=== PATIENT | female | born 1975 | race Caucasian/White ===

== ENCOUNTER 2016-02-20 05:58 | Emergency (ER) | payer OTHER ==
[~2016-02-20] VITALS: Ht 167.6 cm; Wt 63.6 kg
[~2016-02-20 05:58] MED LIST: AMT25T PO; ASCO500C6 PO; BENZ-12 PO; BUSP10TA2 PO; CALC0.257 PO; FERR-83 PO; FOLI1TAB18 PO; LEVO125T6 PO; LORA0.5T PO; MAGN400T23 PO; METH20TA33 PO; MIDO10TA PO; MULT-1018 PO; OXYC5TAB72 PO; PANT40TA3 PO; PARO40TA3 PO; POTA10TA12 PO; PYR50 PO; RISP0.5T14 PO; TRAM50TA2 PO; WARF5TAB PO
[2016-02-20 06:04] VITALS: BP 101/69; PULSE 107; RESP 16; O2SAT 94
--- NOTE | 2016-02-20 06:10 | ED.REPORT ---
HPI-Dyspnea / Wheezing Date of Service Feb 20, 2016 ED Provider: Dr. Mead Pt is a 40 y/o female anticoagulated on Coumadin w/ a complex medical hx significant for PE, asthma, recurrent pneumonia, presenting to the ED c/o pleuritic chest pain onset 2 weeks ago. She decided to come in today because she has had a fever for the past 2 days. She c/o associated dark productive cough, generalized weakness, dyspnea on exertion, SOB. She has been using an Albuterol inhaler (without spacer) without relief. She denies N/V/D. Nursing Notes Stated Complaint: TROUBLE BREATHING/COUGH Chief Complaint: Respiratory Complaints Nursing Notes Reviewed: Yes Allergies: Coded Allergies: No Known Allergies (Unverified Allergy, Unknown, 12/12/15) Scheduled Amitriptyline (Amitriptyline) 25 Mg Tab 25-50 MG PO HS Ascorbic Acid (Vitamin C) 500 Mg Capsule.er 500 MG PO DAILY Azithromycin (Zithromax) 250 Mg Tablet 250 MG PO DAILY first dose was in the ER Buspirone (Buspirone) 10 Mg Tablet 10 MG PO TID Calcitriol (Rocaltrol) 0.25 Mcg Capsule 0.25 MCG PO MWF Clotrimazole 2% (Gyne-Lotrimin 3 2%) 21 Gm Cream.appl 21 GM VAGINAL BID to hand for ringworm, use until rash gone Ferrous Sulfate (Ferrous Sulfate) 325 Mg Tablet 325 MG PO HS Folic Acid (Folic Acid) 1 Mg Tablet 1 MG PO DAILY Levothyroxine (Levothyroxine) 125 Mcg Tablet 125 MCG PO DAILY Magnesium Oxide (Mag-Oxide) 400 Mg Tablet 400 MG PO TID Methylphenidate (Methylphenidate) 20 Mg Tablet 20 MG PO TID 8am, NOON, 4pm Midodrine (Midodrine) 10 Mg Tablet 10 MG PO TID Multivitamin (Multi Vitamin Daily) 1 Each Tablet 1 EACH PO DAILY Pantoprazole DR (Pantoprazole DR) 40 Mg Tablet.dr 40 MG PO DAILY Paroxetine (Paroxetine) 40 Mg Tablet 40 MG PO DAILY Potassium Chloride ER (Potassium Chloride ER) 10 Meq Tablet 10 MEQ PO DAILY Prednisone (PredniSONE) 20 Mg Tablet 20 MG PO DAILY 40 mg (2 pills) 02/20, 02/21 20mg (1 pill) 02/22,02/23 10mg (1/2 pill) 02/24, Pyridoxine (Vitamin B-6) 50 Mg Tablet 200 MG PO DAILY Risperidone (Risperdal) 0.5 Mg Tablet 0.5 MG PO DAILY Warfarin Sodium (Coumadin) 5 Mg Tablet 5 MG PO Lauren,Mo,We,Fri,Sa Warfarin Sodium (Coumadin) 5 Mg Tablet 7.5 MG PO ,Lillie Scheduled PRN Benzonatate (Tessalon Perle) 100 Mg Capsule 200 MG PO TID PRN PRN For Cough Lorazepam (Lorazepam) 0.5 Mg Tablet 0.5 MG PO TID PRN PRN For Anxiety Tramadol (Tramadol) 50 Mg Tablet 50 MG PO TID PRN PRN For Pain oxyCODONE (oxyCODONE) 5 Mg Tablet 5 MG PO Q4H PRN PRN For Pain General Time Seen by MD: 06:13 Chief Complaint Cough, Shortness of breath Hx Obtained From: Patient Arrived By: Walk-in Sudden in Onset?: No Onset Occurred: More than a week ago... (2 weeks) Symptom Duration: Since onset Location: : Chest left: Chest right Quality: Pleuritic Severity: Current: Moderate Severity: Maximum: Moderate Past Medical History Past Medical History Notes: Admitted 04/14/2015 for syncope, hypotension Echo 04/2015 EF 60-65%, normal Admit 12/2015 for pneumonia Past Medical History 1. Patient admitted to [facility] 10/09/2014 t to the CCU for severe, refractory hypotension in the setting of chronic malnutrition, and 2 months of progressive weakness falls and edema/anasarca. 2. Pulmonary Embolus (exact etiology not determined beyond sedentary hospitalization) 10/13/14 at [facility], further complicated by development of ARDS necessitating intubation mechanical ventilation. As a result of high airway pressures, the patient developed bilateral pneumothoraces and requiredbilateral chest tubes. Patient required a tracheostomy for vent weaning. Exact etiology of ARDS was unknown. Patient was then placed at [facility], and discharged from there to a SNF on 12/22/14. 3. Patient remains on chronic anticoagulation 4. Herniated disk 5. Hx of SBO - admit to [facility] 09/2015 for SBO, managed conservatively at that time 6. Hx of colon torsion 7. Narcolepsy 8. Chronic migraines 9. ADD 10. Cardiomyopathy echo at [facility] showed a PFO and a right left intracardiac shunt, thought to be Takotsubo cardiomyopathy - follow up echo revealed resolution (EF 65-70% in 09/2015) 11. Bipolar disorder 12. Hypothyroidism 13. GERD 14. Asthma Reports: Depression Past Surgical History Gastric bypass (multiple revisions) Vertical banding Gastroplasty Adhesion lysis Chest tube R and L following barotrauma during. 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 12/12/2015 Ambulatory Status Independent Review of Systems Constitutional: Reports: Chills, Fever, Weakness - generalized Respiratory: Reports: Dyspnea on exertion, Pleuritic pain, Prod cough, brown, Prod cough, green, Prod cough, yellow, Shortness of breath Complete sys rev & neg: except as marked. GI: Denies: Diarrhea, Nausea, Vomiting Physical Exam Initial Vital Signs Vital Signs (First) Date Time Temp Pulse Resp B/P Pulse Ox O2 Delivery O2 Flow Rate FiO2 02/20/16 06:04 37.1 107 16 101/69 94 Room Air Initial VS: Reviewed, Vital signs abnormal Head / Eyes: Atraumatic, Normocephalic, PERRL ENT: Mucous membranes moist, Conjunctiva normal, No scleral icterus Abdomen / GI: Soft Extremities: Vascular intact, Neuro intact, No swelling, No tenderness Skin: Warm, Dry, No cyanosis Neurologic: Alert, Oriented, Nonfocal Psychiatric: Mood/affect normal, Behavior normal, Normal thought content General/Constitutional: Awake, Alert, No acute distress, Cooperative, Not toxic appearing Neck: Atraumatic, Supple, Full range of motion Respiratory / Chest: Atraumatic, No respiratory distress, No rales, No retractions, No chest tenderness Mild wheezing throughout Good air movement Rhonchi over the right upper lobe and right axilla Cardiovascular: Heart rate NL, Regular rhythm, Cap refill not delayed, Peripheral circulation NL Heart Sounds / Murmur: Positive: Systolic murmur present.. (II/) Skin: Atraumatic, Warm, Dry, Intact Rash / Lesion Notes: Left posterior hand: 1 cm flesh colored macule with central clearing Interpretation & Diagnostics X-Ray Chest Interpretation Chest Xray Interpretation: Developing right upper lobe pneumonia View: AP & lat Re-Eval/Medical Decision Re-Evaluation/Progress : Time of Eval: 07:08 Re-Evaluation/Progress Note: Pt rechecked. Informed pt of plan for treatment. Pt understands and agrees with plan for treatment. F/U and RTER warnings given. All questions addressed. Counseled Regarding: Diagnosis, Lab results, Need for follow-up, When/why to return to ED Discharge & Departure Impression: Primary Impression: Right upper lobe pneumonia Pneumonia type: due to unspecified organism Qualified Code: J18.9 - Pneumonia, unspecified organism Additional Impressions: Acute asthma exacerbation Asthma severity: unspecified severity Qualified Code: J45.901 - Unspecified asthma with (acute) exacerbation Tinea corporis Disposition: Home Discharge Condition All VS Reviewed: Yes Condition: Stable Patient Instructions: Asthma (ED), Bacterial Pneumonia (ED) Additional Instructions: Your chest x-ray today shows signs of a developing right upper lobe pneumonia. It sounds like you started out with a typical cold. I believe your fever and shortness of breath is caused by an acute asthma exacerbation secondary to the pneumonia, all after the cold caused you to be a bit more susceptible. I am prescribing antibiotics for the pneumonia. You got your first dose of Azithromycin in the ER and will need 250mg daily for 4 more days. Use your inhaler as directed with the spacer. Finish the steroid taper. You got 60mg in the ER today. 40 mg (2 pills) 02/20, 02/21 20mg (1 pill) 02/22,02/23 10mg (1/2 pill) 02/24, 02/25 Return to the emergency department if you develop a high fever, worsening shortness of breath, profound weakness, or any other concerning signs or symptoms. Follow-up with your primary care doctor later this week or early next week. Call to schedule an appointment. 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 I hope you feel better soon! Referrals: Abeba Garcia MD (PCP) Scribe Attestation Portions of this note were transcribed by Scott Castañeda. I, Dr. Mead personally performed the history, physical exam and medical decision-making; I reviewed and confirmed the accuracy of the information in the transcribed note. Signed by Maggi Verma, 02/20/16 - 59 copies to: Abeba Garcia MD, Shawna L MD Feb 20, 2016 06:10 SCOTT CASTAÑEDA Feb 20, 2016 06:13
[2016-02-20] MEDS ORDERED: predniSONE 20 mg Tablet PO ONE (07:15)
[2016-02-20] MEDS ORDERED: Albuterol-Ipratropium 3 mL Inhalation Solution NEB ONE (07:15)
[2016-02-20] MEDS ORDERED: ZIT250 PO (07:19)
[2016-02-20] MEDS ORDERED: PRE20 PO (07:19)
[2016-02-20] MEDS ORDERED: CLOT21CR7 VAGINAL (07:24)
[2016-02-20 07:45] VITALS: PULSE 102; RESP 18; O2SAT 97
--- NOTE | 2016-02-20 08:02 | DRSVH ---
PROCEDURE: X-RAY CHEST, TWO VIEWS ([id number]) INDICATIONS: cough TECHNIQUE: 2 views of the chest were acquired. COMPARISON: [facility], CR, XR CHEST 2VW, 12/12/2015, 17:25. FINDINGS: Surgical changes and devices: Multiple surgical clips and sutures noted in the upper abdomen. Lungs and pleura: No pleural effusions or pneumothorax. The opacity noted in the periphery of the ri ght upper lobe suspicious for pneumonia. Reticular opacities in the lung bases bilaterally are stable compared to prior examination.. Mediastinum: Mediastinal contours are normal. Heart size is normal. Bones and chest wall: No suspicious bony abnormalities. Soft tissues appear unremarkable. IMPRESSION: New right upper lobe airspace opacity suspicious for pneumonia. Dictated by: Darya Mccurdy MD, PhD on 02/20/2016 at 8:00 Approved by: Darya Mccurdy MD, PhD on 02/20/2016 at 8:00
== END 2016-02-20 08:06 | disposition home or self-care (01) ==
LOC: SED 05:58
DX: J18.9 Pneumonia, unspecified organism (principal); J45.901 Unspecified asthma with (acute) exacerbation; B35.4 Tinea corporis; I42.9 Cardiomyopathy, unspecified; K21.9 Gastro-esophageal reflux disease without esophagitis; E03.9 Hypothyroidism, unspecified; F31.9 Bipolar disorder, unspecified; Z79.01 Long term (current) use of anticoagulants; Z87.891 Personal history of nicotine dependence
CPT/HCPCS: 71020; 94664; 99284; J7620